=== PATIENT | female | born 1975 | race Caucasian/White ===

== ENCOUNTER 2017-12-14 06:13 | Day surgery (SDC) | payer OTHER ==
[~2017-12-14] VITALS: Ht 152.4 cm; Wt 65.3 kg
[2017-12-14] MEDS ORDERED: fentaNYL CITRATE/PF 100 MCG/2 ML AMP IVP ONE (08:35)
[2017-12-14] MEDS ORDERED: SEVOFLURANE 15 MIN GAS INH ONE (08:35)
[2017-12-14] MEDS ORDERED: SILVER NITRATE APPLICATOR 1 STICK STICK..EA. TP ONE (08:35)
[2017-12-14] MEDS ORDERED: LR 1,000 ML IV.SOLN IV ONE (08:35)
[2017-12-14] MEDS ORDERED: ONDANSETRON HCL 4 MG/2 ML VIAL IVP ONE (08:35)
[2017-12-14] MEDS ORDERED: NS IRRIG SOLN 5000 ML IR ONE (08:35)
[2017-12-14] MEDS ORDERED: KETOROLAC TROMETHAMINE 30 MG VIAL IVP ONE (08:35)
[2017-12-14] MEDS ORDERED: PROPOFOL 200MG/ 20ML VIAL (DIPRIVAN) IV ONE (08:35)
[2017-12-14] MEDS ORDERED: MIDAZOLAM HCL 5 MG/5 ML VIAL IVP ONE (08:35)
[2017-12-14] MEDS ORDERED: LR 1,000 ML IV SCH (09:11)
[2017-12-14] MEDS ORDERED: METOCLOPRAMIDE HCL 10 MG/2 ML VIAL IVP PRN (09:15)
[2017-12-14] MEDS ORDERED: MORPHINE 4 MG/ML INJ. SYRINGE IVP PRN ×3 (09:15)
[2017-12-14] MEDS ORDERED: PROMETHAZINE HCL 25 MG/ML AMP IM PRN ×4 (09:45→10:45)
[2017-12-14] MEDS ORDERED: ONDANSETRON HCL 4 MG/2 ML VIAL IVP PRN (09:45)
[2017-12-14] MEDS ORDERED: OXYCODONE/ACETAMINOPHEN 5-325 TABLET PO PRN (09:45)
[2017-12-14] MEDS ORDERED: HYDROmorphone 2 MG TAB PO PRN (09:45)
[2017-12-14 10:31] VITALS: BP_SYST 121
[2017-12-14] MEDS ORDERED: KETOROLAC TROMETHAMINE 30 MG VIAL IVP SCH (12:00)
[2017-12-15] MEDS ORDERED: fentaNYL CITRATE 250 MCG/5 ML AMP IV ONE (08:00)
[2017-12-15] MEDS ORDERED: MIDAZOLAM HCL 5 MG/5 ML VIAL IVP ONE (08:00)
[2017-12-15] MEDS ORDERED: ROCURONIUM BROMIDE 10 MG/ML (ZEMURON) IV ONE (08:00)
[2017-12-15] MEDS ORDERED: ROPIVACAINE 0.2% (NAROPIN) PF SOLUTION 100 ML BOTTLE EP ONE (08:00)
[2017-12-15] MEDS ORDERED: ROPIVACAINE 40 MG/20 ML AMP EP ONE (08:00)
[2017-12-15] MEDS ORDERED: NS IRRIG SOLN 1000 ML IR ONE (08:00)
[2017-12-15] MEDS ORDERED: PROPOFOL 200MG/ 20ML VIAL (DIPRIVAN) IV ONE (08:00)
[2017-12-15] MEDS ORDERED: SEVOFLURANE 15 MIN GAS INH ONE (08:00)
[2017-12-15] MEDS ORDERED: ONDANSETRON HCL 4 MG/2 ML VIAL IVP ONE (08:00)
[2017-12-15] MEDS ORDERED: NS 1000 ML IV.SOLN IV ONE (08:00)
[2017-12-15] MEDS ORDERED: KETOROLAC TROMETHAMINE 30 MG VIAL IVP ONE ×2 (08:00)
[2017-12-15] MEDS ORDERED: NEOSTIGMINE METHYLSULFATE 1 MG/ML, 10 ML VIAL IVP ONE (08:00)
[2017-12-15] MEDS ORDERED: CEFAZOLIN 1 GM IVPB PREMIX 50 ML IV ONE (08:00)
[2017-12-15] MEDS ORDERED: METOCLOPRAMIDE HCL 10 MG/2 ML VIAL IVP ONE (08:00)
[2017-12-15] MEDS ORDERED: GLYCOPYRROLATE 0.2 MG/ML VIAL IJ ONE (08:00)
[2017-12-15] MEDS ORDERED: LR 1,000 ML IV.SOLN IV ONE (08:00)
== END 2017-12-14 11:12 | disposition home or self-care (01) ==
LOC: SDS 06:13 → SMU 06:14 → SDS 11:12
PROVIDERS: ATTEND Obstetrics & Gynecology
DX: D25.9 Leiomyoma of uterus, unspecified (principal); N84.0 Polyp of corpus uteri; N93.9 Abnormal uterine and vaginal bleeding, unspecified; F17.200 Nicotine dependence, unspecified, uncomplicated; Z88.0 Allergy status to penicillin; Z82.49 Family history of ischemic heart disease and other diseases of the circulatory system; Z98.82 Breast implant status
CPT/HCPCS: 36415; 58561; 86886; 86900; 86901; 88305; C1819; J1885; J2250; J2405; J2704; J3010; J7120; J0690; J2710; J2765; J2795; J3490; J7030